=== PATIENT | female | born 1935 | race Caucasian/White ===

== ENCOUNTER 2022-06-22 22:26 | Emergency (ER) | payer MEDICARE ==
[~2022-06-22] VITALS: Ht 157.5 cm; Wt 51.7 kg
--- NOTE | 2022-06-22 23:57 | NUR ---
Dr. Brambila at bedside for MSE.
[2022-06-23] MEDS ORDERED: ACETAMINOPHEN ES 500 MG TABLET PO ONE (00:15)
[2022-06-23] MEDS ORDERED: ACETAMINOPHEN ES 500 MG TABLET ONE (00:26)
--- NOTE | 2022-06-23 00:30 | NUR ---
Pt out of ER for CT.
--- NOTE | 2022-06-23 01:39 | NUR ---
Informed [facility] that the patient is DC'd and will be transferred back to facility.
--- NOTE | 2022-06-23 01:45 | NUR ---
Called [facility] for pt transportation, eta 60 - 70 min.
--- NOTE | 2022-06-23 03:22 | NUR ---
[facility] has arrived.
--- NOTE | 2022-06-23 03:40 | NUR ---
Patient discharged to [facility] [place] in stable condition with [facility]. Written and verbal after care instructions given. Patient and ambulance personnel verbalized understanding of instructions. Stressed follow up or return to ER for worsening s/s.
[2022-06-23 03:52] VITALS: BP 138/72
== END 2022-06-23 03:40 ==
LOC: ER 22:26
DX: S01.81XA Laceration without foreign body of other part of head, initial encounter (principal); S09.90XA Unspecified injury of head, initial encounter; S50.311A Abrasion of right elbow, initial encounter; W19.XXXA Unspecified fall, initial encounter; Y92.099 Unspecified place in other non-institutional residence as the place of occurrence of the external cause; G20 Parkinson's disease; R29.6 Repeated falls; M79.601 Pain in right arm
CPT/HCPCS: 70450; 73060; 73090; A4663; A9150